=== PATIENT | male | born 1985 | race Hispanic/Latino ===

== ENCOUNTER 2020-08-26 11:43 | Emergency (ER) | payer SELFPAY ==
[2020-08-26] MEDS ORDERED: ONDANSETRON 4 MG/2 ML INJ IV ONE (12:47)
[2020-08-26] MEDS ORDERED: SODIUM CHLORIDE 0.9% 1000 ML 1,000 ML IV ONE (12:48)
--- NOTE | 2020-08-26 12:52 | Event Note ---
ED Screening Note Date of service: 08/26/20 Time: 12:51 ED Screening Note: This initial assessment/diagnostic orders/clinical plan/treatment(s) is/are subject to change based on patients health status, clinical progression and re- assessment by fellow clinical providers in the ED. Further treatment and workup at subsequent clinical providers discretion. Patient/guardian urged not to elope from the ED as their condition may be serious if not clinically assessed and managed. Initial orders include: This is a 35-year-old obese male he is a recovering alcoholic states he has been sober for 52 days. He denies any drug use. He denies any other medical problems. Patient is complaining of 2 days of generalized abdominal pain 8/10, nausea and vomiting bright red blood. He denies any fever chills chest pain shortness of breath no urinary symptoms
[2020-08-26 13:26] LABS: Hematocrit 49.7 % (35.5-45.6); Hemoglobin 16.3 gm/dl (11.8-15.2); Mean Corpuscular HGB Conc 33 % (32-34); Mean Corpuscular Volume 85 fl (84-94); Platelet Count 247 K/mm3 (140-440); Red Blood Count 5.86 M/mm3 (3.65-5.03); Red Cell Distribution Width 14.6 % (13.2-15.2)
[2020-08-26 13:44] LABS: Alanine Aminotransferase 23 units/L (7-56); Albumin 4.1 g/dL (3.9-5); BUN/Creatinine Ratio 10; Blood Urea Nitrogen 8 mg/dL (9-20); Calcium 8.7 mg/dL (8.4-10.2); Hemolysis Index 26
[2020-08-26] MEDS ORDERED: SODIUM CHLORIDE 0.9% 1000 ML 1,000 ML ONE (16:40)
[2020-08-26] MEDS ORDERED: ONDANSETRON 4 MG/2 ML INJ ONE (16:40)
[2020-08-27] MEDS ORDERED: FAMOTIDINE 20 MG/2 ML INJ IV ONE (00:15)
[2020-08-27] MEDS ORDERED: fentaNYL 100 MCG/2 ML INJ IV ONE (00:15)
[2020-08-27] MEDS ORDERED: ONDANSETRON 4 MG/2 ML INJ IV ONE (00:15)
--- NOTE | 2020-08-27 00:20 | Emergency Department Report ---
HPI - General Chief Complaint: GI Bleed Time Seen by Provider: 08/26/20 12:46 - HPI HPI: Room 22 The patient is a 35-year-old male present with chief complaint of abdominal pain and hematemesis. Patient states 2 days ago he developed epigastric pain that was stabbing in nature. Patient states he had a decreased appetite because he noticed that eating food worsen his pain. Later that evening the patient states he developed nausea vomiting with vomitus mixed with blood. The patient states that he vomited more he noticed gross blood. Patient estimates he has vomited approximately 30 times. Patient missed 3 watery stool but states he did not l ook at the color of the stool. Patient complains of dizziness. The patient states his legal services professional drove him to the emergency department and he is not driving ED Past Medical Hx - Past Medical History Previous Medical History?: Yes Additional medical history: COVID - Surgical History Past Surgical History?: No - Family History Family history: no significant - Social History Smoking Status: Current Every Day Smoker (1/2 pack/day) Substance Use Type: None (Denies illicit drug use), Alcohol (History of heavy alcohol consumption however sober x50+ days) - Medications Home Medications: Home Medications Medication Instructions Recorded Confirmed Last Taken Type Famotidine [Pepcid] 20 mg PO BID #30 tablet 08/27/20 Unknown Rx Ondansetron [Zofran ODT TAB] 8 mg PO Q8HR #20 tab.rapdis 08/27/20 Unknown Rx traMADoL [Ultram] 50 mg PO Q6HR PRN #10 tablet 08/27/20 Unknown Rx ED Review of Systems ROS: Stated complaint: VOMITING BLOOD Other details as noted in HPI Constitutional: fever (Subjective) Eyes: denies: eye pain ENT: denies: throat pain Respiratory: no symptoms reported Cardiovascular: denies: chest pain Endocrine: no symptoms reported Gastrointestinal: abdominal pain, nausea, vomiting, diarrhea, hematemesis Genitourinary: denies: dysuria Musculoskeletal: denies: back pain Neurological: denies: headache Physical Exam - Physical Exam Vital Signs: Vital Signs 08/26/20 12:20 Temperature 97.6 F Pulse Rate 83 Respiratory 20 Rate Blood Pressure 157/88 O2 Sat by Pulse 98 Oximetry Vital Signs 08/26/20 08/27/20 08/27/20 12:20 01:19 01:20 Temperature 97.6 F Pulse Rate 83 87 88 Respiratory 20 16 18 Rate Blood Pressure 157/88 148/79 O2 Sat by Pulse 98 97 97 Oximetry 08/27/20 08/27/20 08/27/20 01:21 01:23 01:25 Temperature Pulse Rate 82 83 80 Respiratory 23 19 14 Rate Blood Pressure 148/79 148/79 148/79 O2 Sat by Pulse 97 97 97 Oximetry 08/27/20 08/27/20 08/27/20 01:27 01:29 01:31 Temperature Pulse Rate 79 79 71 Respiratory 13 12 14 Rate Blood Pressure 148/79 148/79 147/80 O2 Sat by Pulse 96 97 93 Oximetry 08/27/20 08/27/20 08/27/20 01:33 01:35 01:37 Temperature Pulse Rate 79 82 75 Respiratory 15 16 16 Rate Blood Pressure 147/80 147/80 147/80 O2 Sat by Pulse 93 94 94 Oximetry 08/27/20 08/27/20 08/27/20 01:38 01:39 01:41 Temperature Pulse Rate 78 80 83 Respiratory 15 17 22 Rate Blood Pressure 148/79 147/80 147/80 O2 Sat by Pulse 94 95 91 Oximetry 08/27/20 08/27/20 08/27/20 01:43 01:45 01:47 Temperature Pulse Rate 80 84 76 Respiratory 16 19 15 Rate Blood Pressure 148/79 148/79 148/79 O2 Sat by Pulse 96 95 96 Oximetry 08/27/20 08/27/20 08/27/20 01:49 01:50 01:51 Temperature Pulse Rate 80 75 86 Respiratory 18 16 17 Rate Blood Pressure 148/79 147/80 148/79 O2 Sat by Pulse 96 97 95 Oximetry 08/27/20 08/27/20 08/27/20 01:53 01:54 01:55 Temperature Pulse Rate 79 77 78 Respiratory 18 17 19 Rate Blood Pressure 148/79 147/80 148/79 O2 Sat by Pulse 97 96 96 Oximetry 08/27/20 08/27/20 08/27/20 01:56 01:57 01:59 Temperature Pulse Rate 79 87 87 Respiratory 19 21 20 Rate Blood Pressure 147/80 148/79 148/79 O2 Sat by Pulse 96 95 97 Oximetry 08/27/20 08/27/20 08/27/20 02:01 02:03 02:04 Temperature Pulse Rate 66 75 76 Respiratory 20 16 18 Rate Blood Pressure 130/71 130/71 147/80 O2 Sat by Pulse 96 96 96 Oximetry 08/27/20 08/27/20 08/27/20 02:05 02:07 02:09 Temperature Pulse Rate 67 76 71 Respiratory 17 17 16 Rate Blood Pressure 130/71 130/71 130/71 O2 Sat by Pulse 97 95 95 Oximetry 08/27/20 08/27/20 08/27/20 02:11 02:13 02:14 Temperature Pulse Rate 75 75 76 Respiratory 16 17 17 Rate Blood Pressure 130/71 147/80 130/71 O2 Sat by Pulse 95 94 94 Oximetry 08/27/20 08/27/20 08/27/20 02:15 02:16 02:17 Temperature Pulse Rate 77 72 74 Respiratory 17 16 17 Rate Blood Pressure 147/80 130/71 147/80 O2 Sat by Pulse 95 94 94 Oximetry 08/27/20 08/27/20 08/27/20 02:19 02:21 02:22 Temperature Pulse Rate 96 H 70 67 Respiratory 17 18 17 Rate Blood Pressure 147/80 147/80 130/71 O2 Sat by Pulse 92 94 93 Oximetry 08/27/20 08/27/20 08/27/20 02:23 02:24 02:25 Temperature Pulse Rate 68 73 77 Respiratory 18 17 17 Rate Blood Pressure 147/80 130/71 147/80 O2 Sat by Pulse 93 93 93 Oximetry 08/27/20 08/27/20 08/27/20 02:27 02:29 02:31 Temperature Pulse Rate 76 92 H Respiratory 18 19 Rate Blood Pressure 147/80 147/80 147/80 O2 Sat by Pulse 93 93 97 Oximetry 08/27/20 08/27/20 08/27/20 02:33 02:35 02:37 Temperature Pulse Rate 67 66 65 Respiratory 17 15 16 Rate Blood Pressure 126/77 126/77 126/77 O2 Sat by Pulse 95 95 95 Oximetry 08/27/20 08/27/20 08/27/20 02:39 02:41 02:43 Temperature Pulse Rate 69 64 67 Respiratory 16 16 16 Rate Blood Pressure 126/77 126/77 126/77 O2 Sat by Pulse 95 96 96 Oximetry 08/27/20 08/27/20 08/27/20 02:45 02:47 02:49 Temperature Pulse Rate 70 69 66 Respiratory 16 16 16 Rate Blood Pressure 130/71 130/71 130/71 O2 Sat by Pulse 96 95 95 Oximetry 08/27/20 08/27/20 08/27/20 02:51 02:52 02:53 Temperature Pulse Rate 91 H 74 78 Respiratory 15 12 19 Rate Blood Pressure 130/71 143/76 143/76 O2 Sat by Pulse 95 97 96 Oximetry 08/27/20 08/27/20 08/27/20 02:55 02:56 02:57 Temperature Pulse Rate 109 H 107 H 84 Respiratory 14 15 20 Rate Blood Pressure 126/72 141/81 141/81 O2 Sat by Pulse 96 97 97 Oximetry 08/27/20 02:59 Temperature Pulse Rate 80 Respiratory 17 Rate Blood Pressure 141/81 O2 Sat by Pulse 95 Oximetry Physical Exam: GENERAL: The patient is well-developed well-nourished male lying on stretcher not appearing to be in acute distress. [] HEENT: Normocephalic. Atraumatic. Extraocular motions are intact. Patient has moist mucous membranes. NECK: Supple. Trachea midline CHEST/LUNGS: Clear to auscultation. There is no respiratory distress noted. HEART/CARDIOVASCULAR: Regular. There is no tachycardia. There is no gallop rub or murmur. ABDOMEN: Abdomen is soft, with tenderness palpation epigastric, left upper quadrant, right upper quadrant and suprapubic region. Tenderness is greatest in the epigastric region. There is no guarding. Patient has normal bowel sounds. There is no abdominal distention. SKIN: There is no rash. There is no edema. There is no diaphoresis. NEURO: The patient is awake, alert, and oriented. The patient is cooperative. The patient has no focal neurologic deficits. The patient has normal speech MUSCULOSKELETAL: There is no evidence of acute injury. RECTAL: Guaiac negative ED Course Vital Signs 08/26/20 12:20 Temperature 97.6 F Pulse Rate 83 Respiratory 20 Rate Blood Pressure 157/88 O2 Sat by Pulse 98 Oximetry ED Medical Decision Making - Lab Data Result diagrams: 08/26/20 12:53 08/26/20 12:53 Laboratory Tests 08/26/20 08/26/20 12:53 12:53 WBC 9.1 RBC 5.86 H Hgb 16.3 H Hct 49.7 H MCV 85 MCH 28 MCHC 33 RDW 14.6 Plt Count 247 Sodium 135 L Potassium 3.7 Chloride 100.7 Carbon Dioxide 26 Anion Gap 12 BUN 8 L Creatinine 0.8 Estimated GFR > 60 BUN/Creatinine Ratio 10 Glucose 104 H Calcium 8.7 Total Bilirubin 0.50 AST 22 ALT 23 Alkaline Phosphatase 73 Total Protein 7.0 Albumin 4.1 Albumin/Globulin Ratio 1.4 Lipase 36 Laboratory Tests 08/26/20 08/26/20 08/27/20 12:53 12:53 03:00 WBC 9.1 RBC 5.86 H Hgb 16.3 H Hct 49.7 H MCV 85 MCH 28 MCHC 33 RDW 14.6 Plt Count 247 Sodium 135 L Potassium 3.7 Chloride 100.7 Carbon Dioxide 26 Anion Gap 12 BUN 8 L Creatinine 0.8 Estimated GFR > 60 BUN/Creatinine Ratio 10 Glucose 104 H Calcium 8.7 Total Bilirubin 0.50 AST 22 ALT 23 Alkaline Phosphatase 73 Total Protein 7.0 Albumin 4.1 Albumin/Globulin Ratio 1.4 Lipase 36 Urine Color Yellow Urine Turbidity Clear Urine pH 5.0 Ur Specific [place] > 1.059 H Urine Protein 30 mg/dl Urine Glucose (UA) Neg Urine Ketones Tr Urine Blood Neg Urine Nitrite Neg Urine Bilirubin Neg Urine Urobilinogen 2.0 Ur Leukocyte Esterase Neg Urine WBC (Auto) 6.0 Urine RBC (Auto) 27.0 Urine Mucus 3+ Urine Yeast (Budding) Few - Radiology Data Radiology results: report reviewed (CT abdomen pelvis), image reviewed (CT abdomen pelvis) [facility] [address] [id number] Cat Scan Report Signed Patient: ROBERT PIZARRO MR#: [id number] 9 : 1985 Acct:[id number] Age/Sex: 35 / M ADM Date: 08/26/20 Loc: ED Attending Dr: Ordering Physician: AUDREY ROSALES MD Date of Service: 08/27/20 Procedure(s): CT abdomen pelvis w con Accession Number(s): [id number] cc: AUDREY ROSALES MD CT OF THE ABDOMEN AND PELVIS WITH INTRAVENOUS CONTRAST INDICATION / CLINICAL INFORMATION: Epigastric pain with nausea and vomiting. TECHNIQUE: The patient received 100 cc Omnipaque [address] scans at this location are performed using CT dose reduction for ALARA by means of automated exposure control. COMPARISON: None available. FINDINGS: ABDOMEN: There is mild diffuse fatty infiltration of the liver without focal lesion. The gallbladder, bile ducts, pancreas, spleen, adrenal glands, kidneys and bowel demonstrate no significant abnormality. No adenopathy is seen. The lung bases are clear PELVIS: The distal ureters, urinary bladder, prostate gland and seminal vesicles are normal. A normal appendix is present and there is no evidence of diverticulitis. No abnormal mass or fluid collection is seen. I do not identify a hernia. There is mild spondylosis. IMPRESSION: No acute abnormality is identified. Signer Name: Levar Flor MD Signed: 08/27/2020 1:22 AM Workstation Name: [id number] Transcribed By: RT Dictated By: Levar Flor MD Electronically Authenticated By: Levar Flor MD Signed Date/Time: 08/27/20121 DD/ 8 TD/TT: Print Cancel - Differential Diagnosis Gastritis, pancreatitis, peptic ulcer disease, partial small bowel obstruct Critical care attestation.: If time is entered above; I have spent that time in minutes in the direct care of this critically ill patient, excluding procedure time. ED Disposition Clinical Impression: Gastritis, Acute abdominal pain Disposition: DC- TO HOME OR SELFCARE Is pt being admited?: No Does the pt Need Aspirin: No Condition: Stable Instructions: Gastritis, Adult, [id number], Abdominal Pain, Adult Additional Instructions: Return to the emergency department should you develop worsening symptoms, inability to tolerate food or liquids, high fever or any other concerns Prescriptions: Famotidine [Pepcid] 20 mg PO BID #30 tablet traMADoL [Ultram] 50 mg PO Q6HR PRN #10 tablet PRN Reason: Pain Ondansetron [Zofran ODT TAB] 8 mg PO Q8HR #20 tab.rapdis Referrals: PORFIRIO PASCUAL MD [Staff Physician] - 3-5 Days (Dr. Pascual is a edge runner. Please follow-up with him for further evaluation) [facility] [Provider Group] - 3-5 Days Forms: Accompanied Note Time of Disposition: 03:42
--- NOTE | 2020-08-27 01:26 | Cat Scan Report ---
CT OF THE ABDOMEN AND PELVIS WITH INTRAVENOUS CONTRAST INDICATION / CLINICAL INFORMATION: Epigastric pain with nausea and vomiting. TECHNIQUE: The patient received 100 cc Omnipaque [address] scans at this location are performed using CT dose reduction for ALARA by means of automated exposure control. COMPARISON: None available. FINDINGS: ABDOMEN: There is mild diffuse fatty infiltration of the liver without focal lesion. The gallbladder, bile ducts, pancreas, spleen, adrenal glands, kidneys and bowel demonstrate no significant abnormali ty. No adenopathy is seen. The lung bases are clear PELVIS: The distal ureters, urinary bladder, prostate gland and seminal vesicles are normal. A normal appendix is present and there is no evidence of diverticulitis. No abnormal mass or fluid collection is seen. I do not identify a hernia. There is mild spondylosis. IMPRESSION: No acute abnormality is identified. Signer Name: Levar Flor MD Signed: 08/27/2020 1:22 AM Workstation Name: [id number]
[2020-08-27 03:13] LABS: Bilirubin,Urine NEG (Negative); Blood,Urine NEG (Negative); Color,Urine Yellow (Yellow); Mucus,Urine 3+ /HPF
[2020-08-27 04:14] VITALS: BP 164/71
== END 2020-08-27 04:00 | disposition home or self-care (01) ==
LOC: ED 11:43
DX: K29.70 Gastritis, unspecified, without bleeding (principal); R10.13 Epigastric pain; F17.200 Nicotine dependence, unspecified, uncomplicated; Z79.899 Other long term (current) drug therapy; Z88.0 Allergy status to penicillin; Z88.8 Allergy status to other drugs, medicaments and biological substances
CPT/HCPCS: 36415; 74177; 80053; 81001; 82271; 83690; 85027; 96361; 96374; 96375; 96376; 99284; J2405; J3010; J7030; Q9967